=== PATIENT | female | born 1940 | race Caucasian/White ===

== ENCOUNTER 2019-04-13 10:19 | Day surgery (SDC) | payer MEDICARE, OTHER ==
[~2019-04-13 10:19] MED LIST: CELECOXIB 100 MG CAPSULE PO ONE; FAMOTIDINE 20MG TABLET PO ONE; MECLIZINE 25 MG TABLET PO ONE; METOCLOPRAMIDE 10 MG TABLET PO ONE; VANCOMYCIN 1GM/200ML PREMIX 1 GM/200 ML PIGGYBACK IVPB ONE
[2019-04-13] MEDS ORDERED: LIDOCAINE 2% MDV (20MG/ML) 20ML VIAL IV ONE (10:20)
[2019-04-13] MEDS ORDERED: ROPIVACAINE HCL (NAROPIN) /PF 5MG/ML 20ML VIAL IV ONE (10:20)
[2019-04-13] MEDS ORDERED: DEXAMETHASONE 4 MG/ML 1ML VIAL IVP ONE (10:20)
[2019-04-13] MEDS ORDERED: PROPOFOL 10 MG/ML VIAL IV ONE (10:20)
[2019-04-13] MEDS ORDERED: MIDAZOLAM HCL 2MG/2ML VIAL IV ONE (10:20)
[2019-04-13] MEDS ORDERED: GENTAMICIN SULFATE 400 MG in 0.9 % SODIUM CHLORIDE 100ML 100 ML IV ONE (11:00)
[2019-04-13 11:06] LABS: ABO GROUP O; RH TYPE NEGATIVE
[2019-04-13 11:07] LABS: ANTIBODY SCREEN NEGATIVE (NEGATIVE)
[2019-04-13] MEDS ORDERED: RINGERS SOLUTION,LACTATED 1,000 ML IV ONE (11:10)
[2019-04-13] MEDS ORDERED: TRANEXAMIC ACID 1,000 MG/10 ML ML IU ONE (13:26)
[2019-04-13] MEDS ORDERED: BUPIVACAINE 0.5% W/EPI MPF 30 ML VIAL SQ ONE (13:26)
[2019-04-13] MEDS ORDERED: TRANEXAMIC ACID 1,000 MG/10 ML ML IV ONE (13:27)
[2019-04-13] MEDS ORDERED: NALOXONE 0.4 MG/1 ML VIAL IVP PRN (14:36)
[2019-04-13] MEDS ORDERED: ONDANSETRON HCL IV 4 MG/2 ML VIAL IVP PRN (14:36)
[2019-04-13] MEDS ORDERED: MAGNESIUM HYDROXIDE 30 ML UDC PO PRN (14:36)
[2019-04-13] MEDS ORDERED: HYDROCODONE/APAP 10/325 TABLET PO PRN (14:36)
[2019-04-13] MEDS ORDERED: BISACODYL 10 MG SUPP RC PRN (14:36)
[2019-04-13] MEDS ORDERED: ACETAMINOPHEN W/ CODEINE 300MG/60MG TABLET PO PRN ×2 (14:36)
[2019-04-13] MEDS ORDERED: ZOLPIDEM TARTRATE 5 MG TABLET PO PRN (14:36)
[2019-04-13] MEDS ORDERED: DIPHENHYDRAMINE HCL 25 MG CAPSULE PO PRN (14:36)
[2019-04-13] MEDS ORDERED: ACETAMINOPHEN 325 MG TAB PO PRN (14:36)
[2019-04-13] MEDS ORDERED: HYDROMORPHONE HCL 2 MG/ML VIAL IM PRN (14:36)
[2019-04-13] MEDS ORDERED: TRAMADOL HCL 50 MG TABLET PO PRN (14:36)
[2019-04-13] MEDS ORDERED: AL HYDROX/MAG HYDROX 30ML UD PO PRN (14:36)
[2019-04-13] MEDS ORDERED: KETOROLAC 30 MG/ML VIAL IVP PRN (14:36)
[2019-04-13] MEDS ORDERED: CEFAZOLIN 2 Gram 2 GM/50 ML BAG IVPB SCH (14:45)
[2019-04-13] MEDS: POTASSIUM CHLORIDE/D5-0.9%NACL 20 MEQ/1,000 ML BAG IV SCH (15:56)
[2019-04-13] MEDS ORDERED: RANITIDINE HCL 150 MG TABLET PO PRN (16:03)
[2019-04-13] MEDS: HYDROCODONE/APAP 10/325 TABLET PO PRN ×2 (16:49→20:15)
[2019-04-13] MEDS: DOCUSATE SODIUM 100 MG CAPSULE PO SCH (21:19)
[2019-04-13] MEDS: VANCOMYCIN 1GM/200ML PREMIX 1 GM/200 ML PIGGYBACK IVPB SCH (22:56)
[2019-04-14] MEDS: HYDROCODONE/APAP 10/325 TABLET PO PRN ×3 (03:58→14:01)
[2019-04-14] MEDS: POTASSIUM CHLORIDE/D5-0.9%NACL 20 MEQ/1,000 ML BAG IV SCH ×2 (03:58→12:03)
[2019-04-14 07:12] LABS: HEMATOCRIT 35.5 % (35.0-47.0); HEMOGLOBIN 10.8 gm/dl (11.6-16.0)
[2019-04-14 07:32] LABS: BLOOD UREA NITROGEN 16 mg/dL (8-23); CREATININE 0.8 mg/dL (0.5-0.9); EST GLOMERULAR FILTRATION RATE > 60 mL/min; GLUCOSE,RANDOM 105 mg/dL (74-109)
--- NOTE | 2019-04-14 08:10 | Operative Note ---
DATE OF SURGERY: 04/13/2019 PREOPERATIVE DIAGNOSIS: End-stage arthrosis of the right knee. POSTOPERATIVE DIAGNOSIS: End-stage arthrosis of the right knee. OPERATION: Cemented right total knee arthroplasty using Posadas and Nephew components with a size 5 cobalt chrome Legion femoral component, a size 4 stemmed tibia baseplate, an 11 mm lipped tibial insert, and a 35 mm all-plastic patella. STAFF SURGEON: Tommy Bartlett MD ANESTHESIA: Spinal. PREPARATION: Chloraprep. INDIVIDUAL CONSIDERATIONS: None. PROCEDURE: The patient was taken to the operating room, placed supine on the operating room table. She had a successful induction of a spinal anesthetic. The right lower extremity was prepped and draped in the usual fashion. The limb was elevated and tourniquet was inflated to 250 mmHg. The patient had a midline approach to the knee. Sharp dissection carried down through skin and subcutaneous tissue. Small veins were coagulated with a Bovie. A medial arthrotomy was performed. The patella was everted and the knee was flexed. The patient had bone loss and exposed bone in the medial compartment and obviously cartilage loss. There was also exposed bone in the notch. Fat pad was resected, ACL was sacrificed, and provisional anterior meniscectomies were performed. The capsule was released from the medial proximal tibia. The initial femoral facilities flight check pilot hole was then made freehand. The intramedullary femoral cutting jig was placed. It was cut in 7.0 degrees of valgus and adjusted for rotation and secured with pins for a 10 mm resection. The initial transverse cut was then made. The skin guide was placed in the anterior and posterior facilities flight check pilot holes. It was found that a size 5 would be appropriate but I had to translate it anteriorly 2 mm. The anterior and posterior cuts followed by chamfer cuts were made. Osteophytes removed, and a size 5 trial was placed and found to fit well. The tibia was brought forward, and the remainder of the meniscal remnants removed with a Bovie. The extraarticular tibial cutting jig was placed. It was cut in neutral with a 3-degree AP slope. Care was taken to adjust for rotation using the extraarticular alignment guide and bony landmarks. It was set for a 9 mm resection keyed off the high lateral side and secured with pins. When cutting the tibia, care was taken to preserve the PCL insertion on the tibia. It was found that a size 4 fit appropriately and it was adjusted for rotation and secured with pins. With an 11 mm trial and femoral trial, there was excellent motion and stability. Ligamentous balance and rotation alignment were thought to be normal. Femoral facilities flight check pilot holes were impacted and the tibial keel stamp was impacted, and these trial components were removed. The patient had a thick patella and roughly 9 mm of bone was removed freehand. I was easily able to fit a 35 patella. The 3 facilities flight check pilot holes were drilled. The tourniquet was let down briefly to get bleeders posteriorly and then placed back up again. PCL was found to be completely competent. The knee was then thoroughly irrigated out with pulsatile Betadine and saline to remove any visual or palpable debris. Bony surfaces were then dried. A size 4 stemmed tibia baseplate was cemented into place followed by impaction of the 11 mm lipped tibial insert followed by cementing in the size 5 cobalt chrome Legion femur followed by cementing in the 35 mm patella. The implant surfaces were compressed, excess cement was removed. After the cement had set, there was excellent motion and stability. Ligamentous balance, rotation alignment, and patellofemoral tracking were normal. No lateral release was required. After irrigation, tourniquet was let down. Hemostasis was obtained with a Bovie. The capsule was then closed with a running #2 quill. Prior to this, I infiltrate the skin, subcu, and periosteum with 30 mL of 0.5% Marcaine with epinephrine. After closing the capsule, the subcu was closed in layers with running 0 quill, skin was closed with flora. Then 1 g of tranexamic acid was mixed with 30 mL of saline and injected into the knee through a sterile 18-gauge needle, and a sterile bulky compressive ELMA- type dressing was applied. The patient tolerated the procedure well. Needle and sponge counts were correct. Estimated blood loss was minimal, and she was taken back to recovery in good condition. There were no complications. UV
[2019-04-14] MEDS ORDERED: ENALAPRIL 5 MG TABLET PO SCH (10:00)
[2019-04-14] MEDS ORDERED: MULTIVITAMINS/MINERALS TABLET PO SCH (10:00)
[2019-04-14] MEDS ORDERED: SPIRONOLACTONE 25 MG TAB PO SCH (10:00)
[2019-04-14] MEDS ORDERED: ASPIRIN 81 MG TABEC PO SCH (10:00)
[2019-04-14] MEDS ORDERED: CALCIUM CARB/VITAMIN D 500MG/200IU PO SCH (10:00)
[2019-04-14] MEDS ORDERED: RIVAROXABAN 10 MG TABLET PO SCH (10:00)
[2019-04-14] MEDS ORDERED: FERROUS SULFATE 325 MG TAB PO SCH (10:00)
[2019-04-14] MEDS ORDERED: METOPROLOL SUCC 50 MG TABLET PO SCH (10:00)
[2019-04-14] MEDS: DOCUSATE SODIUM 100 MG CAPSULE PO SCH (10:14)
[2019-04-14] MEDS: VANCOMYCIN 1GM/200ML PREMIX 1 GM/200 ML PIGGYBACK IVPB SCH ×2 (10:15→12:03)
--- NOTE | 2019-04-14 12:05 | Rehab Evaluation ---
Patient Information - Patient Information Diagnosis: R Knee DJD Ordered Treatment: PT Evaluate and Treat Status: Initial Evaluation Surgery: Yes (R TKA) Date of Surgery: 04/13/19 Past Medical/Surgical Hx: PAST MEDICAL/SURGICAL HISTORY Past Surgical History BACK INJS RIGHT KNEE SCOPE TONSILS BUNIONECTOMY BALAT CATARACTS C SCOPES PMH - Respiratory Hx Respiratory Disorders Yes Hx Bronchitis Yes: IN THE PAST PMH - Cardiovascular Hx Cardiovascular Disorders Yes Hx Hypertension Yes: CONTROLLED WITH MEDS Exercise Tolerance Fair PMH - Neuro Hx Neurological Disorders No PMH - GI Hx Gastrointestinal Disorders Yes Hx Gastroesophageal Reflux Yes: OCCASSIONALLY USES ZANTAC PMH - Hx Genitourinary Disorders Yes Hx Age of Menopause 52 Hx Bladder Problem Yes: LEAKY BLADDER PMH - Endocrine Hx Endocrine Disorders No PMH - Musculoskeletal Hx Musculoskeletal Disorders Yes Hx Arthritis Yes: RIGHT KNEE, FEET AND HANDS Comment: LEFT DROP FOOT PMH - Psych Hx Psychiatric Problems No PMH - Hematology/Oncology Hx Hematology/Oncology Yes Disorders Hx Bruising Yes: BRUISES EASILY Premorbid Status: Detail (Patient reported that she used her staight cane at times before surgery when ambulating long distances.) Social History: Detail (Patient lives in a 1-story home with her spouse. There are 3 steps to enter with a railing on the R when entering. In the bathroom there is a tub/shower combination with a hand held shower head and a shower bench but no grab bars. There is an elevated toilet seat and she stated that there is a sink to hang onto to get up. She has a front-wheeled walker and a straight cane available to use.) Precautions: [place], Fall, Other (WBAT on R LE) - Time With Patient Total Time Spent With Patient (Min): 30 Treatment Procedures: Detail (Initial evaluation; low complexity The patient was left in bed with her call light and bedside table within reach. The nursing staff was notified of her position.) Subjective Information - Subjective Information Per Patient (Patient reported that she was feeling well. She said that she was having 5-6/10 pain in her R knee.) Objective Data - Pain Pain Present: Yes (R knee) Pain Scale Used: Numeric (1 - 10) (5-6/10) - Mental Status Patient Orientation: Oriented x3 - Visual Perception Appears within normal limits for therapeutic activities - ROM Not within normal limits (R knee ROM is limited as expected s/p R TKA procedure. R ankle and hip, and L LE AROM is within normal limits for functional activities.) - Strength/Tone Not within normal limits (R knee strength is limited as expected s/p R TKA procedure. R ankle and hip, and L LE strenght is within normal limits for functional activities.) - Coordination Appears within normal limits for therapeutic activities - Bed Mobility Independent (Patient was independent in bed mobility tasks.) - Transfers Independent (Patient was independent in sit to stand, stand to sit, supine to sit, and sit to supine.) - Balance Balance Sitting: Good Balance Standing: Good - Gait Detail (Patient ambulated 125 feet using the front-wheeled walker independently using WBAT on the R LE. She completed stair training over 3 stairs with supervision using the correct technique and the walker as an handle turner railing.) Therapy Assessment - Therapy Assessment Detail (Patient presents with decreased R knee ROM, decreased R knee strength, and gait abnormalities. She has met all of her inpatient goals at this time.) Patient Education - Patient Education Teaching Topic: Exercise/Activity (Patient's knee HEP was reviewed with her. The patient demonstrated good understanding and technique of all exercises.) Problem List - Problem List Physical Therapy Problem List: Detail (1. R knee pain 2. Decreased R knee ROM 3. Gait abnormalities 4. Decreased R knee strength) Goals - Goals Physical Therapy Goals: All inpatient therapy goals have been met at this time. Prognosis - Prognosis Good Plan - Plan Physical Therapy Plan: Patient has met all of her inpatient therapy goals. She is schedule to begin home therapy following discharge.
--- NOTE | 2019-04-14 12:54 | Rehab Evaluation ---
Patient Information - Patient Information Diagnosis: R Knee DJD Ordered Treatment: OT Evaluate and Treat Status: Initial Evaluation Surgery: Yes (R TKA) Date of Surgery: 04/13/19 Past Medical/Surgical Hx: PAST MEDICAL/SURGICAL HISTORY Past Surgical History BACK INJS RIGHT KNEE SCOPE TONSILS BUNIONECTOMY BALAT CATARACTS C SCOPES PMH - Respiratory Hx Respiratory Disorders Yes Hx Bronchitis Yes: IN THE PAST PMH - Cardiovascular Hx Cardiovascular Disorders Yes Hx Hypertension Yes: CONTROLLED WITH MEDS Exercise Tolerance Fair PMH - Neuro Hx Neurological Disorders No PMH - GI Hx Gastrointestinal Disorders Yes Hx Gastroesophageal Reflux Yes: OCCASSIONALLY USES ZANTAC PMH - Hx Genitourinary Disorders Yes Hx Age of Menopause 52 Hx Bladder Problem Yes: LEAKY BLADDER PMH - Endocrine Hx Endocrine Disorders No PMH - Musculoskeletal Hx Musculoskeletal Disorders Yes Hx Arthritis Yes: RIGHT KNEE, FEET AND HANDS Comment: LEFT DROP FOOT PMH - Psych Hx Psychiatric Problems No PMH - Hematology/Oncology Hx Hematology/Oncology Yes Disorders Hx Bruising Yes: BRUISES EASILY Premorbid Status: Detail (Patient reported that she used her staight cane at times before surgery when ambulating long distances, independent with all ADLs.) Social History: Detail (Patient lives in a multi-level home with her spouse. There are 3 steps to enter with a railing on the R when entering. There are bilateral handrails on the steps to the basement laundry, however Pt reports her daughters can help if needed with laundry at [place]. In the bathroom there is a tub/shower combination with a hand held shower head and a shower chair but no grab bars. She has an elevated toilet seat and she stated that there is a sink to hang onto to get up. She has a front-wheeled walker and a straight cane available to use.) Precautions: [place], Fall, Other (WBAT on R LE) - Time With Patient Total Time Spent With Patient (Min): 40 (1 eval low, 1 ADL) Treatment Procedures: Detail (OT eval: low complexity) Subjective Information - Subjective Information Per Patient (Pt supine in bed upon arrival, wanting to leave at 1pm. Session ended w/ Pt up in chair with ice on R knee and call light in reach.) Objective Data - Pain Pain Present: Yes (10/02 R knee, recently had pain meds) - Mental Status Patient Orientation: Oriented x3 - Visual Perception Appears within normal limits for therapeutic activities - ROM Within normal limits (B UEs) - Strength/Tone Within normal limits (B UEs) - Coordination Appears within normal limits for therapeutic activities - Bed Mobility Independent - Transfers Independent (supine to EOB) - Balance Balance Sitting: Good, Fair Balance Standing: Fair (w/ walker) - Sensation Intact - Gait Detail (Fxl mobility within bedroom with FWW and supervision - verbal cueing for safe walker use, Pt demos increasing follow thru throughout eval.) - ADL's/IADL's Detail (OT educates/demos adaptive technique for LB dressing and Pt demos follow thru to don/doff underwear, pants, socks, and slippers with increased effort. Pt acknowledges tedhose wearing schedule, therapist educates on adaptive techs for increased success. OT educates Pt on importance of using shower chair initially upon DC, Pt verbalizes understanding.) - Special Tests No Therapy Assessment - Therapy Assessment Detail (Pt demos safety and independence with all ADLs and fxl mobility with walker. Pt will have spouse available to assist upon DC. No further IP OT needs identified.) Patient Education - Patient Education Teaching Topic: Other (adaptive techniques) Response: Return Demonstration, Verbalize Understanding Teaching Method: Discussion, Demonstration Teaching Recipient: Patient Barriers To Learning: None Problem List - Problem List Physical Therapy Problem List: Detail (1. R knee pain 2. Decreased R knee ROM 3. Gait abnormalities 4. Decreased R knee strength) Occupational Therapy Problem List: Detail (No further IP OT needs identified.) Goals - Goals Physical Therapy Goals: All inpatient therapy goals have been met at this time. Occupational Therapy Goals: No further IP OT needs/goals identified. Prognosis - Prognosis Good Plan - Plan Physical Therapy Plan: Patient has met all of her inpatient therapy goals. She is schedule to begin home therapy following discharge. Occupational Therapy Plan: No further skilled IP OT needs identified. DC OT services. Thank you for this referral.
== END 2019-04-14 14:10 | disposition home or self-care (01) ==
LOC: SUR 10:19 → MEDSURG 15:19 → SUR 04-14 14:10
PROVIDERS: ATTEND Orthopaedic Surgery
DX: M17.11 Unilateral primary osteoarthritis, right knee (principal); I10 Essential (primary) hypertension; K21.9 Gastro-esophageal reflux disease without esophagitis
CPT/HCPCS: 80048; 85014; 85018; 86850; 86900; 86901; C1776; J1580; J3370; J3480; J7120